=== PATIENT | female | born 1980 | race Hispanic/Latino ===

== ENCOUNTER 2016-06-09 09:10 | Inpatient (IN) | payer MEDICAID ==
[2016-06-09 10:00] LABS: Basophils % (Auto) 0.7 % (0.0-1.8); Eosinophils % (Auto) 1.3 % (0.0-4.3); Hematocrit 33.6 % (30.3-42.9); Hemoglobin 10.7 gm/dl (10.1-14.3); Mean Corpuscular HGB Conc 32 % (30-34); Mean Corpuscular Volume 78 fl (79-97); Platelet Count 288 K/mm3 (140-440); Red Blood Count 4.33 M/mm3 (3.65-5.03); Red Cell Distribution Width 16.9 % (13.2-15.2)
[2016-06-09 10:02] LABS: Mean Corpuscular Hemoglobin 25 pg (28-32)
[2016-06-09] MEDS ORDERED: LACTATED RINGERS 1,000 ML ONE (10:36)
[2016-06-09] MEDS ORDERED: FLUARIX QUAD 2016-2017(36 MOS+) IM ONE (12:00)
[2016-06-09] MEDS ORDERED: ePHEDrine SULFATE IV PRN (12:28)
[2016-06-09] MEDS ORDERED: BRETHINE IVP PRN (12:28)
[2016-06-09] MEDS ORDERED: PHENERGAN PR PRN ×2 (12:28→22:27)
[2016-06-09] MEDS ORDERED: SUBLIMAZE IV PRN (12:28)
[2016-06-09] MEDS ORDERED: ZOFRAN IV PRN ×2 (12:28→22:27)
[2016-06-09] MEDS ORDERED: MINERAL OIL PO PRN (12:28)
[2016-06-09] MEDS ORDERED: BRETHINE SUB-Q PRN (12:28)
[2016-06-09] MEDS ORDERED: LACTATED RINGERS 1,000 ML IV SCH (13:00)
[2016-06-09] MEDS ORDERED: PITOCin/NS 20 UNIT/1000ML DRIP 1,000 ML IV SCH (13:00)
[2016-06-09] MEDS ORDERED: PITOCin/NS 30 UNIT/500ML 500 ML IV SCH (13:00)
--- NOTE | 2016-06-09 13:30 | History and Physical Report ---
History of Present Illness Date of examination: 06/09/16 Date of admission: 06/09/16 09:10 Chief complaint: I'm here to be induced History of present illness: Patient is a 35 year old who presents today for medically necessary induction at 39 weeks due to patient's personal history of a pulmonary embolism. She has been on Lovenox throughout this and it was advised that she be delivered at 39 weeks Past History Past Medical History: deep vein thrombosis Family/Genetic History: none Social history: - Obstetrical History Expected Date of Delivery: 06/15/16 Actual Gestation: 39 Week(s) 1 Day(s) : 6 Number of Living Children: 4 Medications and Allergies Allergies Allergy/AdvReac Type Severity Reaction Status Date / Time No Known Allergies Allergy Verified 06/09/16 09:51 Active Meds: Active Medications Fentanyl (Sublimaze) 100 mcg IV Q2H PRN PRN Reason: Labor Pain Lactated Ringer's (Lactated Ringers) 1,000 mls @ 125 mls/hr IV DIRECT ELYSE Oxytocin/Sodium Chloride (Pitocin/Ns 20 Unit/1000ml Drip) 1,000 mls @ 125 mls/ hr IV DIRECT ELYSE Oxytocin/Sodium Chloride (Pitocin/Ns 30 Unit/500ml) 500 mls @ 2 mls/hr IV TITR ELYSE PRN Reason: Protocol Last Admin: 06/09/16 13:08 Dose: 4 mls/hr Mineral Oil (Mineral Oil) 30 ml PO QHS PRN PRN Reason: Constipation Ondansetron HCl (Zofran) 4 mg IV Q8H PRN PRN Reason: Nausea And Vomiting Promethazine HCl (Phenergan) 25 mg KS Q6H PRN PRN Reason: N/V if unable to take po Review of Systems All systems: negative Constitutional: weight gain Breasts: deferred Genitourinary: contractions - Vital Signs Vital signs: Vital Signs Pulse BP 108 H 97/65 06/09/16 09:31 06/09/16 09:31 Temp Pulse Resp BP Pulse Ox 97.9 F 85 18 101/58 06/09/16 09:52 06/09/16 13:16 06/09/16 09:52 06/09/16 13:16 - Physical Exam Breasts: Cardiovascular: Regular rate, Normal S1, Normal S2 Lungs: Positive: Clear to auscultation, Normal air movement Abdomen: Positive: normal appearance, soft, normal bowel sounds. Negative: distention, tenderness Vulva: both: normal Vagina: Positive: normal moisture. Negative: discharge Cervix: Negative: lesion, discharge Uterus: Positive: normal size, normal contour Adnexa: both: normal Anus/Rectum: Positive: normal perianal skin, heme negative. Negative: rectal mass, hemorrhoids Extremities: Deep Tendon Reflex Grade: Normal +2 - Obstetrical FHR: auscultation normal Uterine Contraction Pattern: Regular Uterine Contraction Intensity: Moderate Results Result Diagrams: 06/09/16 09:40 Abnormal lab results 06/09/16 Range/Units 09:40 MCV 78 L (79-97) fl MCH 25 L (28-32) pg RDW 16.9 H (13.2-15.2) % Seg Neutrophils % 70.9 H (40.0-70.0) % All other labs normal. Assessment and Plan IUP at 39.1 here for induction due to personal history of PE. Will begin induction with pitocin. Anticipate
[2016-06-09] MEDS ORDERED: METHERGINE IM ONE ×2 (21:08→21:18)
[2016-06-09] MEDS ORDERED: CYTOTEC PR ONE (21:13)
[2016-06-09] MEDS ORDERED: CYTOTEC ONE (21:14)
--- NOTE | 2016-06-09 21:47 | Procedure Note ---
OB Delivery Note - Delivery Date of Delivery: 06/09/16 Surgeon: HOMAR CARRANZA Estimated blood loss: 300cc - Vaginal Delivery presentation: vertex Delivery position: OA Delivery augmentation: pitocin Delivery monitor: external FHT, external uterine Route of delivery: Delivery placenta: spontaneous Delivery cord: 3 umbilical vessels Episiotomy: none Delivery laceration: vaginal side wall (hemostatic) Anesthesia: none Delivery comments: Viable female delivered over intact perineum with no nuchal cord. Weight 7 ounces (3463 grams). Apgars 8,9. Infant placed on maternal abdomen. Placenta delivered spontaneously and intact with 3vc. Patient tolerated procedure well - Infant A at 1 minute: 8 at 5 minutes: 9 Infant Gender: Female
[2016-06-09] MEDS ORDERED: TYLENOL PO PRN (22:27)
[2016-06-09] MEDS ORDERED: NORCO 5/325 PO PRN (22:27)
[2016-06-09] MEDS ORDERED: LANSINOH TP PRN (22:27)
[2016-06-09] MEDS ORDERED: MILK OF MAGNESIA PO PRN (22:27)
[2016-06-09] MEDS ORDERED: TUCKS PAD TP PRN (22:27)
[2016-06-09] MEDS ORDERED: SODIUM CHLORIDE FLUSH SYRINGE 10 ML IV PRN (22:27)
[2016-06-09] MEDS ORDERED: DERMOPLAST TP PRN (22:27)
[2016-06-09] MEDS ORDERED: BENADRYL PO PRN (22:27)
[2016-06-09] MEDS ORDERED: PHENERGAN PO PRN (22:27)
[2016-06-09] MEDS ORDERED: DULCOLAX PR PRN (22:27)
[2016-06-09] MEDS: MOTRIN PO SCH (22:59)
[2016-06-10] MEDS: COLACE PO SCH ×2 (01:03→11:03)
[2016-06-10] MEDS: MOTRIN PO SCH ×3 (05:06→18:17)
[2016-06-10] MEDS ORDERED: BOOSTRIX IM ONE (06:00)
[2016-06-10 10:02] LABS: Hemoglobin 10.6 gm/dl (10.1-14.3)
[2016-06-10] MEDS: PRENATAL VITAMIN PO SCH (11:03)
[2016-06-11] MEDS: MOTRIN PO SCH ×3 (00:25→12:40)
[2016-06-11] MEDS: COLACE PO SCH ×2 (00:25→12:39)
[2016-06-11] MEDS: PRENATAL VITAMIN PO SCH (12:40)
--- NOTE | 2016-06-11 12:47 | Progress Note ---
Assessment and Plan PPD 2 s/p . Doing well. Plan for discharge on today. Subjective - Subjective Date of service: 06/11/16 Interval history: Patient is a 35 year old who presents today for medically necessary induction at 39 weeks due to patient's personal history of a pulmonary embolism. She has been on Lovenox throughout this and it was advised that she be delivered at 39 weeks Patient reports: appetite normal, voiding normally, pain well controlled, ambulating normally : doing well Objective - Vital Signs Latest vital signs: Vital Signs Temp Pulse Pulse Pulse Resp BP 06/11/16 08:17 97.9 F 84 20 100/66 06/11/16 01:25 98.7 F 67 20 105/67 06/10/16 16:38 97.8 F 68 18 112/64 Intake and Output 06/10/16 06/11/16 06/11/16 22:59 06:59 14:59 Intake Total 360 600 360 Balance 360 600 360 Intake: Oral 360 360 Intake, Free Water 600 Other: Total, Intake Amount 360 120 # Voids Void 2 1 1 - Exam Breasts: Present: deferred Cardiovascular: Present: Regular rate, Normal S1, Normal S2 Lungs: Present: Clear to auscultation, Normal air movement Abdomen: Present: normal appearance, soft, normal bowel sounds Uterus: Present: normal, firm Extremities: Present: normal
[2016-06-11 16:50] VITALS: BP 118/84
== END 2016-06-11 17:40 | disposition home or self-care (01) | DRG 774 ==
LOC: LD 09:10 → OB 23:16
PROVIDERS: ADMIT Obstetrics & Gynecology; ATTEND Obstetrics & Gynecology
PROC: 10E0XZZ Delivery of Products of Conception, External Approach (ICD-10-PCS; principal; 2016-06-09)
PROC: 3E0234Z Introduction of Serum, Toxoid and Vaccine into Muscle, Percutaneous Approach (ICD-10-PCS; 2016-06-09)
DX: O88.22 Thromboembolism in childbirth (principal); O71.4 Obstetric high vaginal laceration alone; Z3A.39 39 weeks gestation of pregnancy; Z37.0 Single live birth; Z86.711 Personal history of pulmonary embolism; Z86.718 Personal history of other venous thrombosis and embolism; Z79.01 Long term (current) use of anticoagulants; Z23 Encounter for immunization; Z83.2 Family history of diseases of the blood and blood-forming organs and certain disorders involving the immune mechanism; Z83.3 Family history of diabetes mellitus; Z82.49 Family history of ischemic heart disease and other diseases of the circulatory system; Z82.79 Family history of other congenital malformations, deformations and chromosomal abnormalities; Z86.19 Personal history of other infectious and parasitic diseases
CPT/HCPCS: 36415; 85014; 85018; 85025; 86850; 86900; 86901; 90471; 90686; 90715; 99211; G0463; J2210; J2590; J3010; J7120

== ENCOUNTER 2016-07-15 07:49 | Day surgery (SDC) | payer MEDICAID ==
[~2016-07-15 07:49] MED LIST: DILAUDID ONE; DIPRIVAN 10 MG/ML IV ONE
--- NOTE | 2016-07-15 08:52 | Short Stay Summary ---
Short Stay Documentation Date of service: 07/15/16 Narrative H&P: Patient is a 35 year old who presents for elective permanent sterilization. She is 7 weeks post spontaneous vaginal delivery and normal without complications - History Principal diagnosis: Undesired fertility H&P: obtained from office Past Medical History: No medical history Past Surgical History: cholecystectomy Social history: - Allergies and Medications Current Medications: Allergies No Known Allergies Allergy (Verified 07/10/16 09:44) Home Medications Medication Instructions Recorded Confirmed Last Taken Type No Known Home Medications [No 07/10/16 07/10/16 Unknown History Reported Home Medications] - Physical exam General appearance: no acute distress HEENT: Atraumatic Lungs: Clear to auscultation, Normal air movement Breasts: deferred Heart: Regular rate, Normal S1, Normal S2 Gastrointestinal: normal, normoactive bowel sounds Female Genitourinary: normal Rectal Exam: deferred Extremities: no ischemia, No edema - Brief post op/procedure progress note Date of procedure: 07/15/16 Pre-op diagnosis: Undesired fertility Post-op diagnosis: same Procedure: Laparoscopic Tubal Ligation (partial salpingectomy) Anesthesia: GETA Findings: Normal uterus tubes and ovaries Surgeon: HOMAR CARRANZA Estimated blood loss: 50-100ml Pathology: list (portion of right and left fallopian tubes) Specimen disposition: to lab Condition: stable - Hospital course Hospital course: unremarkable - Disposition Condition at discharge: Good Disposition: DISCHARGED TO HOME OR SELFCARE Short Stay Discharge Plan Activity: no restrictions Weight Bearing Status: Weight Bear as Tolerated Diet: regular Wound: keep clean and dry Follow up with: HOMAR CARRANZA MD [Primary Care Provider] - 14 Days Prescriptions: HYDROcodone/APAP 5-325 [[place] 5/325] 1 each PO Q6HR PRN #25 tablet PRN Reason: Pain Ibuprofen [Motrin] 800 mg PO Q8HR PRN #40 tablet PRN Reason: Pain
--- NOTE | 2016-07-15 08:53 | Anesthesia Consultation ---
<ZENAIDA GONZALEZ - Last Filed: 07/15/16 08:59> Anesthesia Consult and Med Hx Date of service: 07/15/16 - Airway Anesthetic Teeth Evaluation: Good ROM Head & Neck: Adequate Mental/Hyoid Distance: Adequate Mallampati Class: Class II Intubation Access Assessment: Probably Good - Pulmonary Exam CTA: Yes - Cardiac Exam Cardiac Exam: RRR - Pre-Operative Health Status ASA Pre-Surgery Classification: ASA2 Proposed Anesthetic Plan: General - Pre-Anesthesia Comment Pre-Anesthesia Comments: 1month. History PE 2013. Was taking prophylaxis lovenox during pregnacy, last dose 6 weeks ago. - Cardiovascular System Hx Angina: No (08/2015 (-)stress test, EF 62%) - Hematic Hx Anemia: Yes (during ) <RAQUEL CORDERO - Last Filed: 07/15/16 09:43> Anesthesia Consult and Med Hx - Pre-Operative Health Status ASA Pre-Surgery Classification: ASA3
[2016-07-15] MEDS ORDERED: LACTATED RINGERS 1,000 ML IV SCH (09:00)
[2016-07-15] MEDS ORDERED: ANCEF/STERILE WATER 2 GM/20 ML 2 GM/20 ML SYRINGE IV NR (09:00)
[2016-07-15] MEDS ORDERED: PEPCID PO NR (09:00)
[2016-07-15] MEDS ORDERED: VERSED IV NR (09:00)
--- NOTE | 2016-07-15 09:01 | Anesthesia Day of Surgery ---
Anesthesia Day of Surgery - Day of Surgery Patient Examined: Yes Patient H&P Reviewed: Yes Patient is NPO: Yes
[2016-07-15 09:24] LABS: Hematocrit 40.5 % (30.3-42.9); Hemoglobin 12.6 gm/dl (10.1-14.3)
[2016-07-15] MEDS ORDERED: DECADRON ONE (09:35)
[2016-07-15] MEDS ORDERED: ZEMURON IV ONE (09:35)
[2016-07-15] MEDS ORDERED: PROAIR IH ONE (09:35)
[2016-07-15] MEDS ORDERED: XYLOCAINE MPF 2% ONE (09:35)
[2016-07-15] MEDS ORDERED: BENADRYL ONE (09:35)
[2016-07-15] MEDS ORDERED: DEMEROL IV PRN (09:44)
[2016-07-15] MEDS ORDERED: DILAUDID IV PRN (09:44)
[2016-07-15] MEDS ORDERED: ZOFRAN IV PRN (09:44)
[2016-07-15] MEDS ORDERED: NACL 0.9% IR ONE (09:52)
[2016-07-15] MEDS ORDERED: MARCAINE 0.25% INFILTRATI ONE (09:52)
[2016-07-15] MEDS ORDERED: TORADOL ONE (10:09)
[2016-07-15] MEDS ORDERED: ZOFRAN ONE (10:10)
[2016-07-15] MEDS ORDERED: BLOXIVERZ ONE (10:10)
[2016-07-15] MEDS ORDERED: ROBINUL ONE (10:10)
[2016-07-15] MEDS ORDERED: LACTATED RINGERS 1,000 ML ONE (10:29)
--- NOTE | 2016-07-15 10:43 | Post Anesthesia Evaluation ---
- Post Anesthesia Evaluation Patient Participated: Yes Airway Patent: Yes Stable Respiratory Function: Yes Nausea/Vomiting: No Temp > 96.8F: Yes Pain Manageable: Yes Adequeate Hydration: Yes Anesthesia Complications: No Block Receding Appropriately: Not Applicable Patient on Ventilator: No
--- NOTE | 2016-07-15 11:26 | Operative Report ---
PREOPERATIVE DIAGNOSIS: Undesired fertility, elective sterilization. POSTOPERATIVE DIAGNOSIS: Undesired fertility, elective sterilization. PROCEDURE: Laparoscopic partial salpingectomy. SURGEON: Johana Dunn MD ANESTHESIA: General. ESTIMATED BLOOD LOSS: Minimal. COMPLICATIONS: None. SPECIMENS: Portion of right and left fallopian tubes. DESCRIPTION OF PROCEDURE: The patient was taken to the OR with IV running and in place. She was given adequate anesthesia. She was placed in dorsal lithotomy position and prepped and draped in normal sterile fashion. A speculum was put to the patient's vagina. The cervix was visualized and grasped with a tenaculum. It was then gently sounded approximately 10 cm in length. An acorn cannula was placed into the uterus to provide a means to manipulate the uterus. At this point, the speculum was removed and the surgeon's gloves were changed. Attention was turned to the patient's abdomen and an incision was made in the umbilicus and the trocar was inserted; however, despite multiple attempts to the patient's umbilicus due to her body habitus, the trocar was unable to reach the peritoneal cavity, so at this point, the decision was made to try into the peritoneal cavity from the left upper quadrant, so a small incision was made in the left upper quadrant. Through this incision, a large trocar was also placed and was effective in reaching the peritoneal cavity. Once inside the peritoneal cavity was confirmed with the laparoscope, the abdomen was insufflated with CO2 gas up to approximately 40 mmHg. A second incision was made in the left lower quadrant under direct visualization. Through this incision, a trocar was placed. A grasper was used to identify both tubes. The fimbriated end was identified. The broad ligament and underneath the fimbriated end was identified, cauterized, and transected. This was done to the midway portion following at the mid portion of the tube, the tube itself was crossclamped, cauterized, and transected. Similarly on the patient's right side, the fimbriated end was identified. The broad ligament underneath the tube was identified, cauterized, and transected up to the mid portion of the tube and then the tube itself was crossclamped, cauterized, and transected. Both tubes were handed off to pathology for evaluation. At this point, there was excellent hemostasis noted throughout the abdominal cavity. All instruments were removed from the patient's abdomen and pelvis. The abdomen was desufflated of the CO2 gas. The incisions were closed with #3-0 Monocryl and they were injected with Marcaine upon closing. The sponge, lap, needle, and instrument counts were correct x 2. The patient tolerated the procedure well and was taken to Recovery in stable condition. JOB# [id number] HALINA/HERMANN
[2016-07-15 17:39] VITALS: BP 119/65
== END 2016-07-15 12:35 | disposition home or self-care (01) ==
LOC: OR 07:49
PROVIDERS: ATTEND Obstetrics & Gynecology
DX: Z30.2 Encounter for sterilization (principal); Z90.49 Acquired absence of other specified parts of digestive tract; Z86.711 Personal history of pulmonary embolism
CPT/HCPCS: 36415; 58661; 81025; 85014; 85018; 88302; J0690; J1100; J1170; J1200; J1885; J2175; J2250; J2405; J2704; J2710; J7120

== ENCOUNTER 2019-01-23 11:59 | Outpatient (CLI) | payer MEDICAID ==
[2019-01-23 12:30] LABS: Hematocrit 42.6 % (30.3-42.9); Mean Corpuscular HGB Conc 33 % (30-34); Mean Corpuscular Volume 86 fl (79-97); Platelet Count 280 K/mm3 (140-440); Red Blood Count 4.93 M/mm3 (3.65-5.03); Red Cell Distribution Width 15.1 % (13.2-15.2)
[2019-01-23 12:51] LABS: Alanine Aminotransferase 14 units/L (7-56); Albumin 3.9 g/dL (3.9-5); BUN/Creatinine Ratio 14; Blood Urea Nitrogen 11 mg/dL (7-17); Calcium 9.3 mg/dL (8.4-10.2); Hemolysis Index 15; LDL Cholesterol,Direct 110 mg/dL (50-130)
[2019-01-23 14:13] LABS: HDL Cholesterol 40 mg/dL (40-59)
== END 2019-01-23 12:00 | disposition home or self-care (01) ==
LOC: LAB 11:59
PROVIDERS: ATTEND Surgery
DX: E11.9 Type 2 diabetes mellitus without complications (principal); K21.9 Gastro-esophageal reflux disease without esophagitis; Z90.89 Acquired absence of other organs
CPT/HCPCS: 36415; 80053; 80061; 83036; 84443; 85027; 87338

== ENCOUNTER 2019-02-27 12:21 | Outpatient (CLI) | payer OTHER, MEDICAID ==
--- NOTE | 2019-03-03 04:39 | Pulmonary Function Test ---
SPIROMETRY: FVC 3.66 liters, which is 90% of the predicted. FEV1 is 3.02 liters, which is 89% of the predicted. FEV1/FVC ratio is 83. FLOW VOLUME LOOP: FEF 25-75% is 3.19 liters per second, which is 83% of the predicted. IMPRESSION: This is a normal spirometry. JOB# [id number] RSM/NTS
== END 2019-02-27 12:22 | disposition home or self-care (01) ==
LOC: PF 12:21
PROVIDERS: ATTEND Surgery
DX: E66.2 Morbid (severe) obesity with alveolar hypoventilation (principal)
CPT/HCPCS: 94010

== ENCOUNTER 2020-03-07 11:00 | Outpatient (CLI) | payer MEDICAID | END 2020-03-08 11:00 | disposition home or self-care (01) | LOC: SLR 11:00 | PROVIDERS: ATTEND Otolaryngology | DX: G47.30 Sleep apnea, unspecified (principal) | CPT/HCPCS: G0399 ==

== ENCOUNTER 2020-03-28 15:05 | Outpatient (CLI) | payer MEDICAID | END 2020-03-28 15:06 | disposition home or self-care (01) | LOC: SLR 15:05 | PROVIDERS: ATTEND Otolaryngology | DX: G47.33 Obstructive sleep apnea (adult) (pediatric) (principal); R40.0 Somnolence; E66.9 Obesity, unspecified | CPT/HCPCS: 95811 ==

== ENCOUNTER 2020-04-18 10:32 | Outpatient (CLI) | payer MEDICAID ==
--- NOTE | 2020-04-18 12:00 | XRay Report ---
CHEST 2 VIEWS INDICATION / CLINICAL INFORMATION: SLEEP APENEA. COMPARISON: None available. FINDINGS: SUPPORT DEVICES: None. HEART / MEDIASTINUM: No significant abnormality. LUNGS / PLEURA: No significant pulmonary or pleural abnormality. No pneumothorax. ADDITIONAL FINDINGS: No significant additional findings. IMPRESSION: No significant abnormality Signer Name: Boris Zhao MD FACR Signed: 04/18/2020 11:55 AM Workstation Name: [email or web address]
[2020-04-18 12:13] LABS: ABG Base Excess 0.1 mmol/L (-2.0-3.0); ABG HCO3 24.3 mmol/L (20.0-26.0); ABG Methemoglobin 0.5 % (0.0-1.5); ABG Oxygen Saturation 97.3 % (95.0-99.0); ABG PCO2 38.3 mm Hg; ABG PH 7.42 pH Units (7.350-7.450); ABG PO2 90.5 mm Hg (80.0-90.0)
== END 2020-04-18 10:33 | disposition home or self-care (01) ==
LOC: XRAY 10:32
PROVIDERS: ATTEND Internal Medicine
DX: G47.33 Obstructive sleep apnea (adult) (pediatric) (principal); E66.01 Morbid (severe) obesity due to excess calories
CPT/HCPCS: 36600; 71046; 82803

== ENCOUNTER 2020-04-23 10:48 | Day surgery (SDC) | payer MEDICAID ==
[~2020-04-23 10:48] MED LIST changes: -DILAUDID ONE; -DIPRIVAN 10 MG/ML IV ONE; +SODIUM CHLORIDE 0.9% 1000 ML 1,000 ML IV SCH
--- NOTE | 2020-04-23 11:54 | Operative Report ---
Operative Report Operative Report: DATE: 04/23/2020 SURGERY: Upper endoscopy. SURGEON: Dwight Covarrubias M.D. PROCEDURE: EGD with biopsy PRE OP DX: morbid obesity, GERD POST OP DX: morbid obesity, GERD TYPE OF ANESTHESIA: MAC. ESTIMATED BLOOD LOSS: None. COMPLICATIONS: None. SPECIMENS REMOVED: antral biopsy FINDINGS: 1. Small hiatal hernia, gastritis 2. Otherwise, normal esophagus, stomach and first portion of duodenum. INDICATIONS:INDICATION FOR PROCEDURE: Patient is a 39-year-old female with a long history of morbid obesity. She is planned to have a weight loss procedure and is here for preoperative planning EGD. PROCEDURE DETAILS: After consent was reviewed, patient was taken back to the operating room where patient was placed in the left lateral decubitus position and a bite block was placed in the mouth. After a time-out was called, MAC anesthesia was initiated. I then passed the endoscope into her oropharynx, into her esophagus, visualized the entire esophagus, which was all within normal limits. Z-line was noted to about 34cm from incisors. I then visualized the stomach and the first portion of the duodenum and there were no abnormalities I could clearly visualize with the exception of mild gastritis. A cold forceps biopsy of the antrum was taken and will be sent to pathology to evaluate for H.pylori. I then retroflexed the scope in the stomach and visualized the hiatus and I could see a small hiatal hernia. I then desufflated the stomach and removed the endoscope. Patient tolerated procedure well and was transferred to recovery room in good and stable condition.
--- NOTE | 2020-04-23 11:56 | Discharge Summary ---
Providers - Providers Date of Admission: 04/23/2020 Date of discharge: 04/23/20 Attending physician: DARÍO POOL MD Primary care physician: HOMAR CARRANZA Hospitalization Reason for admission: EGD Condition: Good Procedures: EGD Hospital course: Pt presented for a pre-op EGD as part of planning for up coming bariatric surgery. Procedure was uneventful and pt recovered well and was discharged to home. Disposition: DC- TO HOME OR SELFCARE Core Measure Documentation - Palliative Care Palliative Care/ Comfort Measures: Not Applicable - Core Measures Any of the following diagnoses?: none Exam - Physical Exam Narrative exam: unchanged from pre-op Plan Activity: no restrictions Diet: low carbohydrate Follow up with: HOMAR CARRANZA MD [Primary Care Provider] - 7 Days
--- NOTE | 2020-04-23 13:06 | Anesthesia Consultation ---
Anesthesia Consult and Med Hx Date of service: 04/23/20 - Airway Anesthetic Teeth Evaluation: Good ROM Head & Neck: Adequate Mental/Hyoid Distance: Adequate Mallampati Class: Class II Intubation Access Assessment: Probably Good - Pulmonary Exam CTA: Yes - Cardiac Exam Cardiac Exam: RRR - Pre-Operative Health Status ASA Pre-Surgery Classification: ASA3 Proposed Anesthetic Plan: MAC - Pulmonary Hx Smoking: No Hx Respiratory Symptoms: No Hx Sleep Apnea: Yes - Cardiovascular System Hx Hypertension: No - Central Nervous System CVA: No - Gastrointestinal Hx Gastroesophageal Reflux Disease: No - Endocrine Hx Renal Disease: No Hx Liver Disease: No Hx Insulin Dependent Diabetes: No Hx Non-Insulin Dependent Diabetes: No Hx Thyroid Disease: No - Other Systems Hx Obesity: Yes (BMI 53) - Additional Comments Anesthesia Medical History Comments: Hx PE in 2013; no longer on anticogulation.
[2020-04-23] MEDS ORDERED: propofoL 200 MG/20 ML VIAL IV ONE (13:07)
--- NOTE | 2020-04-23 13:07 | Anesthesia Day of Surgery ---
Anesthesia Day of Surgery - Day of Surgery Patient Examined: Yes Patient H&P Reviewed: Yes Patient is NPO: Yes
[2020-04-23] MEDS ORDERED: LIDOCAINE MPF (2%) 20 MG/1 ML VIAL 5 ML ONE (13:08)
--- NOTE | 2020-04-23 13:54 | Post Anesthesia Evaluation ---
- Post Anesthesia Evaluation Patient Participated: Yes Airway Patent: Yes Stable Respiratory Function: Yes Nausea/Vomiting: No Temp > 96.8F: Yes Pain Manageable: Yes Adequeate Hydration: Yes Anesthesia Complications: No
[2020-04-23 14:22] VITALS: BP 138/81
== END 2020-04-23 14:15 | disposition home or self-care (01) ==
LOC: GIO 10:48
PROVIDERS: ATTEND Surgery
DX: K21.9 Gastro-esophageal reflux disease without esophagitis (principal); E66.01 Morbid (severe) obesity due to excess calories; K44.9 Diaphragmatic hernia without obstruction or gangrene; K29.70 Gastritis, unspecified, without bleeding; G47.30 Sleep apnea, unspecified; Z98.51 Tubal ligation status; Z88.8 Allergy status to other drugs, medicaments and biological substances; Z79.899 Other long term (current) drug therapy; Z98.890 Other specified postprocedural states; Z83.3 Family history of diabetes mellitus; Z68.43 Body mass index [BMI] 50.0-59.9, adult; Z80.8 Family history of malignant neoplasm of other organs or systems; Z82.49 Family history of ischemic heart disease and other diseases of the circulatory system
CPT/HCPCS: 43239; 88305; J2704; J7030

== ENCOUNTER 2020-06-24 12:33 | Outpatient (CLI) | payer MEDICAID ==
[2020-06-24 13:09] LABS: Basophils % (Auto) 0.7 % (0.0-1.8); Eosinophils # (Auto) 0.1 K/mm3 (0.0-0.4); Eosinophils % (Auto) 1.6 % (0.0-4.3); Hematocrit 41.5 % (30.3-42.9); Hemoglobin 13.6 gm/dl (10.1-14.3); Lymphocytes # (Auto) 2.3 K/mm3 (1.2-5.4); Lymphocytes % (Auto) 34.8 % (13.4-35.0); Mean Corpuscular HGB Conc 33 % (30-34); Mean Corpuscular Volume 89 fl (79-97); Monocytes # (Auto) 0.6 K/mm3 (0.0-0.8); Monocytes % (Auto) 9.4 % (0.0-7.3); Platelet Count 193 K/mm3 (140-440); Red Blood Count 4.68 M/mm3 (3.65-5.03); Red Cell Distribution Width 14.9 % (13.2-15.2)
[2020-06-24 13:32] LABS: Alanine Aminotransferase 31 units/L (7-56); Albumin 3.7 g/dL (3.9-5); Blood Urea Nitrogen 6 mg/dL (7-17); Calcium 8.7 mg/dL (8.4-10.2); Chol/HDL Ratio 3.37 %; HDL Cholesterol 37 mg/dL (40-59); Hemolysis Index 5; Iron 47 ug/dL (37-170); LDL Cholesterol,Direct 79 mg/dL (50-130); Total Iron Binding Capacity 275 mcg/dL (250-450)
[2020-06-24 13:33] LABS: BUN/Creatinine Ratio 10
== END 2020-06-24 12:34 | disposition home or self-care (01) ==
LOC: LAB 12:33
PROVIDERS: ATTEND Surgery
DX: E66.01 Morbid (severe) obesity due to excess calories (principal); K30 Functional dyspepsia; E11.9 Type 2 diabetes mellitus without complications
CPT/HCPCS: 36415; 80053; 80061; 82306; 82607; 82728; 83036; 83550; 84425; 84443; 85025

== ENCOUNTER 2020-09-17 10:23 | Outpatient (CLI) | payer MEDICAID ==
[2020-09-17 10:58] LABS: Basophils # (Auto) 0.1 K/mm3 (0.0-0.1); Basophils % (Auto) 1.2 % (0.0-1.8); Eosinophils # (Auto) 0.1 K/mm3 (0.0-0.4); Eosinophils % (Auto) 2.1 % (0.0-4.3); Hematocrit 40.8 % (30.3-42.9); Hemoglobin 14.1 gm/dl (10.1-14.3); Lymphocytes # (Auto) 2.5 K/mm3 (1.2-5.4); Lymphocytes % (Auto) 41.3 % (13.4-35.0); Mean Corpuscular HGB Conc 35 % (30-34); Mean Corpuscular Volume 89 fl (79-97); Monocytes # (Auto) 0.5 K/mm3 (0.0-0.8); Monocytes % (Auto) 7.8 % (0.0-7.3); Platelet Count 144 K/mm3 (140-440); Red Blood Count 4.57 M/mm3 (3.65-5.03); Red Cell Distribution Width 15.3 % (13.2-15.2)
[2020-09-17 11:26] LABS: Alanine Aminotransferase 13 units/L (7-56); Albumin 3.8 g/dL (3.9-5); Blood Urea Nitrogen 5 mg/dL (7-17); Chol/HDL Ratio 3.47 %; HDL Cholesterol 40 mg/dL (40-59); Hemolysis Index 5; Iron 56 ug/dL (37-170); LDL Cholesterol,Direct 90 mg/dL (50-130); Total Iron Binding Capacity 301 mcg/dL (250-450)
[2020-09-17 11:28] LABS: BUN/Creatinine Ratio 8
== END 2020-09-17 10:24 | disposition home or self-care (01) ==
LOC: LAB 10:23
PROVIDERS: ATTEND Surgery
DX: E66.01 Morbid (severe) obesity due to excess calories (principal); K30 Functional dyspepsia; E11.9 Type 2 diabetes mellitus without complications; Z98.84 Bariatric surgery status
CPT/HCPCS: 36415; 80053; 80061; 82306; 82607; 82728; 83036; 83550; 84425; 84443; 85025

== ENCOUNTER 2021-01-02 12:27 | Outpatient (CLI) | payer MEDICAID ==
[2021-01-02 13:30] LABS: % Iron Saturation 13.56 %; Alanine Aminotransferase 10 units/L (7-56); Albumin 3.8 g/dL (3.9-5); Blood Urea Nitrogen 6 mg/dL (7-17); Calcium 9.3 mg/dL (8.4-10.2); Chol/HDL Ratio 3.37 %; HDL Cholesterol 35 mg/dL (40-59); Hemolysis Index 12; Iron 40 ug/dL (37-170); LDL Cholesterol,Direct 76 mg/dL (50-130); Total Iron Binding Capacity 295 mcg/dL (250-450)
[2021-01-02 14:04] LABS: Basophils % (Auto) 0.4 % (0.0-1.8); Eosinophils # (Auto) 0.1 K/mm3 (0.0-0.4); Eosinophils % (Auto) 1.2 % (0.0-4.3); Hematocrit 39.3 % (30.3-42.9); Hemoglobin 12.8 gm/dl (10.1-14.3); Lymphocytes # (Auto) 2.3 K/mm3 (1.2-5.4); Lymphocytes % (Auto) 25.4 % (13.4-35.0); Mean Corpuscular HGB Conc 33 % (30-34); Mean Corpuscular Volume 90 fl (79-97); Monocytes # (Auto) 0.7 K/mm3 (0.0-0.8); Monocytes % (Auto) 7.7 % (0.0-7.3); Platelet Count 225 K/mm3 (140-440); Red Blood Count 4.36 M/mm3 (3.65-5.03); Red Cell Distribution Width 14.1 % (13.2-15.2)
[2021-01-02 14:11] LABS: BUN/Creatinine Ratio 10
[2021-01-05 12:34] LABS: Vitamin D, 25-OH, D2 <4 ng/mL
== END 2021-01-02 12:28 | disposition home or self-care (01) ==
LOC: LAB 12:27
PROVIDERS: ATTEND Surgery
DX: E11.9 Type 2 diabetes mellitus without complications (principal); E66.01 Morbid (severe) obesity due to excess calories; K30 Functional dyspepsia; Z98.84 Bariatric surgery status; E55.9 Vitamin D deficiency, unspecified; K90.9 Intestinal malabsorption, unspecified
CPT/HCPCS: 36415; 80053; 80061; 82306; 82607; 82728; 83036; 83550; 83970; 84425; 84443; 85025

== ENCOUNTER 2021-10-29 15:08 | Outpatient (CLI) | payer MEDICAID ==
[2021-10-29 16:26] LABS: Basophils # (Auto) 0.1 K/mm3 (0.0-0.1); Basophils % (Auto) 0.9 % (0.0-1.8); Eosinophils # (Auto) 0.1 K/mm3 (0.0-0.4); Hematocrit 37.4 % (30.3-42.9); Hemoglobin 11.9 gm/dl (10.1-14.3); Lymphocytes # (Auto) 2.9 K/mm3 (1.2-5.4); Lymphocytes % (Auto) 39.8 % (13.4-35.0); Mean Corpuscular HGB Conc 32 % (30-34); Mean Corpuscular Volume 86 fl (79-97); Monocytes # (Auto) 0.5 K/mm3 (0.0-0.8); Monocytes % (Auto) 6.8 % (0.0-7.3); Platelet Count 248 K/mm3 (140-440); Red Blood Count 4.34 M/mm3 (3.65-5.03); Red Cell Distribution Width 15.2 % (13.2-15.2)
[2021-10-29 16:31] LABS: % Iron Saturation 4.31 %; Alanine Aminotransferase 11 units/L (7-56); Albumin 4.2 g/dL (3.9-5); Blood Urea Nitrogen 14 mg/dL (7-17); Calcium 8.9 mg/dL (8.4-10.2); Chol/HDL Ratio 2.56 %; HDL Cholesterol 48 mg/dL (40-59); Hemolysis Index 4; Iron 15 ug/dL (37-170); LDL Cholesterol,Direct 70 mg/dL (50-130); Total Iron Binding Capacity 348 mcg/dL (250-450)
[2021-10-29 16:37] LABS: BUN/Creatinine Ratio 20
[2021-11-02 14:58] LABS: Vitamin D, 25-OH, D2 <4 ng/mL
== END 2021-10-29 15:09 | disposition home or self-care (01) ==
LOC: LAB 15:08
PROVIDERS: ATTEND Surgery
DX: Z13.21 Encounter for screening for nutritional disorder (principal); E55.9 Vitamin D deficiency, unspecified; E66.01 Morbid (severe) obesity due to excess calories; K30 Functional dyspepsia; K90.9 Intestinal malabsorption, unspecified
CPT/HCPCS: 36415; 80053; 80061; 82306; 82607; 82728; 83550; 84425; 84443; 85025